=== PATIENT | female | born 1985 | race African-American/Black ===

== ENCOUNTER → 2019-03-04 | Outpatient (CLI) | payer OTHER ==
[2019-03-04 08:31] LABS: BASO % 1 % (0-3); EOS # 0.1 x10^3/uL (0.0-0.7); EOS % 2 % (0-3); HEMATOCRIT 38.6 % (36.0-47.0); HEMOGLOBIN 12.8 g/dL (12.0-15.5); LYMPH # 1.7 x10^3/uL (1.0-4.8); LYMPH % 34 % (24-48); MEAN CORPUSCULAR HEMOGLOBIN 28 pg (25-35); MEAN CORPUSCULAR HGB CONC 33 g/dL (31-37); MEAN CORPUSCULAR VOLUME 86 fL (79-100); MONO # 0.3 x10^3/uL (0.0-1.1); MONO % 7 % (0-9); NEUT # 2.7 x10^3uL (1.8-7.7); NEUT % 56 % (31-73); PLATELET COUNT 304 x10^3/uL (140-400); RED BLOOD COUNT 4.51 x10^6/uL (3.50-5.40); WHITE BLOOD COUNT 4.9 x10^3/uL (4.0-11.0)
[2019-03-04 13:54] LABS: FREE T4 0.97 ng/dL (0.76-1.46); THYROID STIM HORMONE (TSH) 0.983 uIU/mL (0.358-3.740)
== END | disposition home or self-care (01) ==
LOC: LAB 07:48
PROVIDERS: ATTEND Obstetrics & Gynecology
DX: Z01.419 Encounter for gynecological examination (general) (routine) without abnormal findings (principal); N76.0 Acute vaginitis
CPT/HCPCS: 36415; 84439; 84443; 85025

== ENCOUNTER → 2019-04-14 | Outpatient (CLI) | payer OTHER ==
--- NOTE | 2019-04-14 09:07 | RAD ---
Exam: Thoracic spine Date: 04/14/2019 12:00 AM CLINICAL HISTORY: Back pain for 5 months COMPARISON: None available. FINDINGS: AP and lateral/swimmers views of the thoracic spine submitted. There is severe superimposed artifact at the cervical thoracic junction on the lateral view per techniques. Exam shows preserved disc height throughout. Negative degenerative/proliferative changes. Negative compression fracture. Mild leftward curvature of the thoracic spine. No spondylolisthesis. Negative focal paraspinal line deviation/hematoma. IMPRESSION: No evidence for acute fracture or subluxation. Electronically signed by: Sea Nance MD (04/14/2019 9:04 AM) [id number]
[2019-04-14 09:10] LABS: BASO % 1 % (0-3); EOS # 0.1 x10^3/uL (0.0-0.7); EOS % 3 % (0-3); HEMATOCRIT 38.9 % (36.0-47.0); HEMOGLOBIN 12.6 g/dL (12.0-15.5); LYMPH # 1.6 x10^3/uL (1.0-4.8); LYMPH % 33 % (24-48); MEAN CORPUSCULAR HEMOGLOBIN 29 pg (25-35); MEAN CORPUSCULAR HGB CONC 32 g/dL (31-37); MEAN CORPUSCULAR VOLUME 89 fL (79-100); MONO # 0.5 x10^3/uL (0.0-1.1); MONO % 11 % (0-9); NEUT # 2.5 x10^3uL (1.8-7.7); NEUT % 53 % (31-73); PLATELET COUNT 276 x10^3/uL (140-400); RED BLOOD COUNT 4.39 x10^6/uL (3.50-5.40); RED CELL DISTRIBUTION WIDTH 14.1 % (11.5-14.5); WHITE BLOOD COUNT 4.8 x10^3/uL (4.0-11.0)
[2019-04-14 09:26] LABS: ALBUMIN 3.7 g/dL (3.4-5.0); ALBUMIN/GLOBULIN RATIO 1.2 (1.0-1.7); CALCIUM 9.3 mg/dL (8.5-10.1); CREATININE 0.9 mg/dL (0.6-1.0); GFR 86.2; POTASSIUM 4.1 mmol/L (3.5-5.1); TOTAL BILIRUBIN 0.3 mg/dL (0.2-1.0); TOTAL PROTEIN 6.8 g/dL (6.4-8.2)
[2019-04-14 16:25] LABS: FREE T4 0.89 ng/dL (0.76-1.46); THYROID STIM HORMONE (TSH) 1.043 uIU/mL (0.358-3.740)
== END | disposition home or self-care (01) ==
LOC: RAD 08:08
PROVIDERS: ATTEND Internal Medicine
DX: L65.9 Nonscarring hair loss, unspecified (principal); R53.83 Other fatigue; M54.6 Pain in thoracic spine; M54.5 Low back pain
CPT/HCPCS: 36415; 72072; 80053; 82306; 82728; 84439; 84443; 85025

== ENCOUNTER → 2019-07-19 | Outpatient (CLI) | payer OTHER ==
--- NOTE | 2019-07-20 16:32 | CARD ---
MR#: [id number] Date of Study: 07/19/2019 Ordering Physician: JUS RAJAN, Referring Physician: JUS RAJAN, Tech: Susan Braden APPROVED REPORT EXAM: Two-dimensional and M-mode echocardiogram with Doppler and color Doppler. Other Information Quality : GoodHR: 79bpm INDICATION Murmur Palpitations RISK FACTORS Asthma 2D DIMENSIONS RVDd2.8 (2.9-3.5cm)Left Atrium(2D)3.1 (1.6-4.0cm) IVSd0.6 (0.7-1.1cm)Aortic Root(2D)2.8 (2.0-3.7cm) LVDd4.8 (3.9-5.9cm)LVOT Diameter2.2 (1.8-2.4cm) PWd0.9 (0.7-1.1cm)LVDs3.0 (2.5-4.0cm) FS (%) 37.7 %SV73.6 ml LVEF(%)67.6 (>50%) Aortic Valve AoV Peak Filippo.146.4cm/sAoV VTI31.4cm AO Peak GR.8.6mmHgLVOT Peak Filippo.96.4cm/s LVOT VTI 20.59cmAO Mean GR.4mmHg KARISHMA (VMAX)2.94rn8BGS (VTI)2.47cm2 Mitral Valve MV E Dznckinu421.9cm/sMV DECEL INCI695by MV A Cjgeoflt16.7cm/sE/A Ratio1.5 Pulmonary Valve PV Peak Bcoprnde55.0cm/sPV Peak Grad.3mmHg Tricuspid Valve TR P. Fawpkqgs529in/sRAP JADUYXIK6rnGr TR Peak Gr.35hwWxBRJL81xqAz Pulmonary Vein S1 Davzmycn09.2cm/sD2 Bhmadega35.8cm/s LEFT VENTRICLE The left ventricle is normal size. There is normal left ventricular wall thickness. The left ventricu lar systolic function is normal and the ejection fraction is within normal range. The Ejection Fracti on is 50-55%. There is normal LV segmental wall motion. The left ventricular diastolic function and f illing is normal for age. RIGHT VENTRICLE The right ventricle is normal size. There is normal right ventricular wall thickness. The right ventr icular systolic function is normal. ATRIA The left atrium size is normal. The right atrium size is normal. The interatrial septum is intact wit h no evidence for an atrial septal defect or patent foramen ovale as noted on 2-D or Doppler imaging. AORTIC VALVE The aortic valve is normal in structure and function. Doppler and Color Flow revealed no significant aortic regurgitation. There is no significant aortic valvular stenosis. MITRAL VALVE The mitral valve is normal in structure and function. There is no evidence of mitral valve prolapse. There is no mitral valve stenosis. Doppler and Color-flow revealed trace mitral regurgitation. TRICUSPID VALVE The tricuspid valve is normal in structure and function. Doppler and Color Flow revealed trace tricus pid regurgitation with an estimated PAP of 24 mmHg. There is no tricuspid valve stenosis. PULMONIC VALVE Doppler and Color Flow revealed trace pulmonic valvular regurgitation. There is no pulmonic valvular stenosis. GREAT VESSELS The aortic root is normal in size. The IVC is normal in size and collapses >50% with inspiration. PERICARDIAL EFFUSION There is no evidence of significant pericardial effusion. Critical Notification Critical Value: No <Conclusion> The left ventricular systolic function is normal and the ejection fraction is within normal range. Th e Ejection Fraction is 50-55%. There is normal LV segmental wall motion. Signed by : Xander Tan, Electronically Approved : 07/19/2019 14:24:00
== END | disposition home or self-care (01) ==
LOC: ECHO 12:36
PROVIDERS: ATTEND Internal Medicine Cardiovascular Disease
DX: R01.1 Cardiac murmur, unspecified (principal)
CPT/HCPCS: 93306

== ENCOUNTER 2020-03-19 11:17 | Emergency (ER) | payer OTHER ==
[~2020-03-19] VITALS: Ht 162.6 cm; Wt 82.0 kg
[2020-03-19] MEDS ORDERED: methylPREDNISolone SOD SUCC PF 125 MG/2 ML VIAL. ONE (11:23)
[2020-03-19] MEDS ORDERED: diphenhydrAMINE 50 MG/ML VIAL ONE (11:23)
[2020-03-19] MEDS ORDERED: FAMOTIDINE 20 MG/2 ML VIAL ONE (11:23)
[2020-03-19] MEDS ORDERED: ONDANSETRON PF 4 MG/2 ML VIAL. ONE (11:24)
[2020-03-19] MEDS ORDERED: diphenhydrAMINE 50 MG/ML VIAL IVP ONE (11:30)
[2020-03-19] MEDS ORDERED: IV NORMAL SALINE 1,000ML 1,000 ML IV ONE (11:30)
[2020-03-19] MEDS ORDERED: methylPREDNISolone SOD SUCC PF 125 MG/2 ML VIAL. IV ONE (11:30)
[2020-03-19] MEDS ORDERED: FAMOTIDINE 20 MG/2 ML VIAL IVP ONE (11:30)
[2020-03-19] MEDS ORDERED: ONDANSETRON PF 4 MG/2 ML VIAL. IVP ONE (11:30)
--- NOTE | 2020-03-19 12:02 | PHYS DOC ---
Past History Past Medical History: Asthma Past Surgical History: Alcohol Use: None General Adult EDM: Chief Complaint: ALLERGIC REACTION HPI: HPI: Patient is a 34 year old female who presents for evaluation of reaction after receiving IV contrast. Patient was getting an outpatient CT scan of her abdomen and pelvis when she developed sudden onset of itching some with throat swelling. Patient had some shortness of air and felt like her throat was "going to close". Patient did not have a known prior history of IV contrast and usually eats shrimp without difficulty. Patient complaining some facial itching. There is no significant wheezing but there was some nausea. Vital signs were stable Review of Systems: Review of Systems: Constitutional: Denies fever or chills Eyes: Denies change in visual acuity HENT: Denies nasal congestion had sore throat Respiratory: Denies cough has shortness of breath Cardiovascular: Denies chest pain or edema GI: Denies abdominal pain, nausea, vomiting, bloody stools or diarrhea : Denies dysuria Musculoskeletal: Denies back pain or joint pain Integument: No obvious rash but did have significant itching to her face and some throat swelling Neurologic: Denies headache, focal weakness or sensory changes Endocrine: Denies polyuria or polydipsia Lymphatic: Denies swollen glands Psychiatric: Denies depression or anxiety Heart Score: Risk Factors: Risk Factors: DM, Current or recent (<one month) smoker, HTN, HLP, family history of CAD, obesity. Risk Scores: Score 0 - 3: 2.5% MACE over next 6 weeks - Discharge Home Score 4 - 6: 20.3% MACE over next 6 weeks - Admit for Clinical Observation Score 7 - 10: 72.7% MACE over next 6 weeks - Early Invasive Strategies Current Medications: Current Meds: Current Medications Medications (Trade) Dose Ordered Sig/Miguel Ángel Start Time Stop Time Status Last Admin Dose Admin Diphenhydramine HCl (Benadryl) 50 mg STK-MED ONCE 03/19/20 11:23 03/19/20 11:23 DC Famotidine (Pepcid Vial) 20 mg STK-MED ONCE 03/19/20 11:23 03/19/20 11:23 DC Methylprednisolone Sodium Succinate (SOLU-Medrol 125MG VIAL) 125 mg STK-MED ONCE 03/19/20 11:23 03/19/20 11:23 DC Ondansetron HCl (Zofran) 4 mg 1X ONCE 03/19/20 11:30 03/19/20 11:31 DC 03/19/20 11:30 4 MG Sodium Chloride 1,000 ml @ 1,000 mls/hr 1X ONCE 03/19/20 11:30 03/19/20 12:29 03/19/20 11:29 1,000 MLS/HR Allergies: Allergies: Allergies Coded Allergies Type Severity Reaction Last Updated Verified Iodinated Contrast Media Allergy Unknown 03/19/20 Yes fluconazole Allergy Unknown 03/19/20 Yes Physical Exam: PE: Constitutional: Well developed, well nourished, moderate acute distress. [] HENT: Normocephalic, atraumatic, bilateral external ears normal, oropharynx moist, no oral exudates, nose normal, no significant posterior pharyngeal swelling or edema. [] Eyes: PERRL, EOMI, conjunctiva normal, no discharge. [] Neck: Normal range of motion, no tenderness, supple, no stridor. [] Cardiovascular:Heart rate regular rhythm, no murmur [] Lungs & Thorax: Bilateral breath sounds clear to auscultation [] Abdomen: Bowel sounds normal, soft, no tenderness, no masses, no pulsatile masses. [] Skin: Warm, dry, no erythema, no rash. [] Back: No tenderness. [] Extremities: No tenderness, no cyanosis, no clubbing, ROM intact, no edema. [] Neurologic: Alert and oriented X 3, normal motor function, normal sensory function, no focal deficits noted. [] Psychologic: Affect normal, judgement normal, mood normal. [] Current Patient Data: Vital Signs: Vital Signs Date Time Temp Pulse Resp B/P (MAP) Pulse Ox O2 Delivery O2 Flow Rate FiO2 03/19/20 11:17 98.4 84 18 131/69 (89) 100 Room Air EKG: EKG: [] Radiology/Procedures: Radiology/Procedures: [address] [address] IMAGING REPORT Signed PATIENT: PATRICE MYERS RACCOUNT: [id number] : 1985 LOCATION: CT AGE: 34 SEX: F EXAM STATUS: REG CLI ORD. PHYSICIAN: VINNY BAGLEY REASON: UMBILICAL HERNIA PROCEDURE: CT ABDOMEN W/CONTRAST CT abdomen with contrast History: Umbilical hernia Technique: After the administration of intravenous contrast, CT imaging was performed of the abdomen. Oral contrast was also given. Pelvis was not imaged. Multiplanar images are reviewed. Exposure: One or more of the following individualized dose reduction techniques were utilized for this examination: 1. Automated exposure control 2. Adjustment of the mA and/or kV according to patient size 3. Use of iterative reconstruction technique. Comparison: None Findings: Compared the technologist, patient had allergic reaction after contrast administration with nausea and vomiting and itching. Patient was sent to the emergency department. There is some motion degradation. There is no significant abnormality of the limited visualized lung bases. No focal abnormality is identified of the liver, spleen, or pancreas. Gallbladder is present without obvious intraluminal abnormality by CT there is no adrenal nodularity. Both kidneys enhance, no hydronephrosis. Bowel is not significantly dilated. There is retained stool greater of the descending colon and distal transverse colon. There is broad area of ventral laxity of the fascia near the umbilicus, small fascial defect more centrally about 0.5 cm just beneath the skin surface at the umbilicus. There are some underlying segments of nondilated small bowel, no significant protrusion of small bowel through the small fascial defect. There is also a tiny right ventral fat-containing hernia best seen image 39 series 2, neck estimated about 0.3 cm, no internal bowel. Pelvis was not imaged, possible heterogeneity of the liver the visualized superior uterus. At least a segment of normal caliber appendix is visualized, not fully seen.. Impression: 1. Per technologist, patient had allergic reaction after injection of contrast, therefore sent to the emergency department. 2. There is broad laxity of the fascia near the umbilicus, small fascial defect just beneath the skin surface at level of the umbilicus. There is nondilated small bowel underlying area of laxity of the fascia, no significant protrusion of small bowel through the small fascial defect. There is also a tiny fat-containing ventral hernia to the right of the midline. 3. There is retained stool greater of the left colon. Electronically signed by: Stephane Banuelos MD (03/19/2020 11:42 AM) [id number] DICTATED AND SIGNED BY: STEPHANE BANUELOS MD DATE: 03/19/20 1142 CC: VINNY BAGLEY ~ [] Course & Med Decision Making: Course & Med Decision Making Pertinent Labs and Imaging studies reviewed. (See chart for details) [] Luis Disclaimer: Luis Disclaimer: This electronic medical record was generated, in whole or in part, using a voice recognition dictation system. 1245 stable, feeling much better at this time and no longer has any itching. Patient was given Solu-Medrol, Benadryl, Pepcid as well as IV fluids and Zofran. Her allergic reaction is certainly controlled and she has no evidence of airway obstruction, swelling posterior pharynx etc. patient stable for discharge. She was advised that she could no longer have iodine and should not eat shrimp Departure Departure: Impression: Primary Impression: Allergic reaction to contrast dye Qualified Codes: T50.8X5A - Adverse effect of diagnostic agents, initial encounter Disposition: HOME/RESIDENCE PRIOR TO ADM Condition: STABLE Referrals: VINNY BAGLEY (PCP) Patient Instructions: Drug Allergy Additional Instructions: Avoid iodine or shrimp in the future, make sure you Benadryl at home in case should you take 1 to 2 pills for itching that may return in the next several hours Justification of Admission: Justification of Admission: Justification of Admission Dx: N/A MILLICENT LAMA DO Mar 19, 2020 12:02
[2020-03-19 13:06] VITALS: BP 121/79
== END 2020-03-19 13:09 | disposition home or self-care (01) ==
LOC: ER 11:17
DX: R06.02 Shortness of breath (principal); T50.8X5A Adverse effect of diagnostic agents, initial encounter; R60.0 Localized edema; R11.0 Nausea; J45.909 Unspecified asthma, uncomplicated; Z98.890 Other specified postprocedural states; Z91.040 Latex allergy status; Z88.8 Allergy status to other drugs, medicaments and biological substances; Y92.89 Other specified places as the place of occurrence of the external cause
CPT/HCPCS: 96374; 96375; 99284; J1200; J2405; J2930; J3490; J7030

== ENCOUNTER → 2020-03-19 | Outpatient (CLI) | payer OTHER ==
[~2020-03-19] MED LIST: CONTRAST GIVEN. MC PRN; IOHEXOL 240 MG/ML 50ML VIAL. ONE; IOHEXOL 240 MG/ML 50ML VIAL. PO ONE; IOHEXOL 300 MG/ML 75 ML VIAL. IV ONE
--- NOTE | 2020-03-19 11:45 | RAD ---
CT abdomen with contrast History: Umbilical hernia Technique: After the administration of intravenous contrast, CT imaging was performed of the abdomen. Oral contrast was also given. Pelvis was not imaged. Multiplanar images are reviewed. Exposure: One or more of the following individualized dose reduction techniques were utilized for this examination: 1. Automated exposure control 2. Adjustment of the mA and/or kV according to patient size 3. Use of iterative reconstruction technique. Comparison: None Findings: Compared the technologist, patient had allergic reaction after contrast administration with nausea and vomiting and itching. Patient was sent to the emergency department. There is some motion degradation. There is no significant abnormality of the limited visualized lung bases. No focal abnormality is identified of the liver, spleen, or pancreas. Gallbladder is present without obvious intraluminal abnormality by CT there is no adrenal nodularity. Both kidneys enhance, no hydronephrosis. Bowel is not significantly dilated. There is retained stool greater of the descending colon and distal transverse colon. There is broad area of ventral laxity of the fascia near the umbilicus, small fascial defect more centrally about 0.5 cm just beneath the skin surface at the umbilicus. There are some underlying segments of nondilated small bowel, no significant protrusion of small bowel through the small fascial defect. There is also a tiny right ventral fat-containing hernia best seen image 39 series 2, neck estimated about 0.3 cm, no internal bowel. Pelvis was not imaged, possible heterogeneity of the liver the visualized superior uterus. At least a segment of normal caliber appendix is visualized, not fully seen.. Impression: 1. Per technologist, patient had allergic reaction after injection of contrast, therefore sent to the emergency department. 2. There is broad laxity of the fascia near the umbilicus, small fascial defect just beneath the skin surface at level of the umbilicus. There is nondilated small bowel underlying area of laxity of the fascia, no significant protrusion of small bowel through the small fascial defect. There is also a tiny fat-containing ventral hernia to the right of the midline. 3. There is retained stool greater of the left colon. Electronically signed by: Homero Thomas MD (03/19/2020 11:42 AM) [id number]
== END | disposition home or self-care (01) ==
LOC: CT 09:42
PROVIDERS: ATTEND Internal Medicine
DX: K42.9 Umbilical hernia without obstruction or gangrene (principal)
CPT/HCPCS: 74160; Q9966; Q9967

== ENCOUNTER → 2020-09-13 | Outpatient (CLI) | payer OTHER ==
[2020-09-14 14:20] LABS: FREE T4 1.18 ng/dL (0.76-1.46); THYROID STIM HORMONE (TSH) 1.167 uIU/mL (0.358-3.740)
== END ==
LOC: LAB 06:14
PROVIDERS: ATTEND Internal Medicine
DX: L65.9 Nonscarring hair loss, unspecified (principal)
CPT/HCPCS: 36415; 82306; 84439; 84443; 84480

== ENCOUNTER → 2020-11-15 | Outpatient (CLI) | payer OTHER ==
[2020-11-15 16:20] LABS: BASO % 1 % (0-3); EOS # 0.1 x10^3/uL (0.0-0.7); EOS % 2 % (0-3); HEMATOCRIT 36.5 % (36.0-47.0); HEMOGLOBIN 12.1 g/dL (12.0-15.5); LYMPH # 1.7 x10^3/uL (1.0-4.8); LYMPH % 36 % (24-48); MEAN CORPUSCULAR HEMOGLOBIN 29 pg (25-35); MEAN CORPUSCULAR HGB CONC 33 g/dL (31-37); MEAN CORPUSCULAR VOLUME 88 fL (79-100); MONO # 0.5 x10^3/uL (0.0-1.1); MONO % 10 % (0-9); NEUT # 2.5 x10^3uL (1.8-7.7); NEUT % 51 % (31-73); PLATELET COUNT 320 x10^3/uL (140-400); RED BLOOD COUNT 4.17 x10^6/uL (3.50-5.40); RED CELL DISTRIBUTION WIDTH 13.4 % (11.5-14.5); WHITE BLOOD COUNT 4.8 x10^3/uL (4.0-11.0)
[2020-11-15 16:38] LABS: ALBUMIN 3.8 g/dL (3.4-5.0); TOTAL PROTEIN 7.7 g/dL (6.4-8.2)
[2020-11-16 00:07] LABS: DHEA SO4 150.5 ug/dL (57.3-279.2)
[2020-11-16 19:36] LABS: FREE T4 1.11 ng/dL (0.76-1.46); THYROID STIM HORMONE (TSH) 0.583 uIU/mL (0.358-3.740)
== END ==
LOC: LAB 07:24
PROVIDERS: ATTEND Physician Assistant
DX: L98.8 Other specified disorders of the skin and subcutaneous tissue (principal)
CPT/HCPCS: 36415; 82040; 82306; 82607; 82627; 82728; 82746; 84155; 84207; 84255; 84402; 84403; 84425; 84439; 84443; 84630; 85025; 86038

== ENCOUNTER → 2021-01-22 | Outpatient (CLI) | payer OTHER ==
[2021-01-23 00:15] LABS: HEMOGLOBIN A1C 5.4 % (4.8-5.6)
== END ==
LOC: LAB 09:39
PROVIDERS: ATTEND Nurse Practitioner Family
DX: Z13.1 Encounter for screening for diabetes mellitus (principal); Z13.220 Encounter for screening for lipoid disorders
CPT/HCPCS: 36415; 80061; 83036